=== PATIENT | male | born 1965 | race Caucasian/White ===

== ENCOUNTER → 2017-11-23 | Outpatient (CLI) | payer BC | LOC: M WUC 16:55 | DX: R05 Cough (principal) | CPT/HCPCS: 71046 ==

== ENCOUNTER 2017-12-05 11:32 | Day surgery (SDC) | payer BC ==
[2017-12-05] MEDS ORDERED: NS 1,000 ML IV (12:00)
== END 2017-12-05 12:46 | disposition home or self-care (01) ==
LOC: M OPP 11:32
DX: Z12.11 Encounter for screening for malignant neoplasm of colon (principal); K57.30 Diverticulosis of large intestine without perforation or abscess without bleeding
CPT/HCPCS: G0121

== ENCOUNTER → 2017-12-13 | Outpatient (CLI) | payer BC | LOC: M RAD 10:42 | DX: J32.4 Chronic pansinusitis (principal) ==

== ENCOUNTER 2018-02-20 10:17 | Day surgery (SDC) | payer BC ==
[2018-02-20] MEDS: LR 1,000 ML IV (11:13)
[2018-02-20] MEDS ORDERED: PROPOFOL 200 MG/20 ML VIAL As Ordered (12:30)
[2018-02-20] MEDS ORDERED: ROCURONIUM BROMIDE 50 MG/5 ML VIAL As Ordered (12:30)
[2018-02-20] MEDS ORDERED: KETOROLAC 60 MG/2 ML VIAL (J1885) As Ordered (12:31)
[2018-02-20] MEDS ORDERED: dexameTHASONE 4 MG/ML 1ML VIAL (J1100) As Ordered (12:31)
[2018-02-20] MEDS ORDERED: ONDANSETRON 4MG/2ML VIAL (J2405) As Ordered (12:31)
[2018-02-20] MEDS ORDERED: LIDOCAINE 2% INJ 100 MG/5 ML SDV (FOR ANES.) As Ordered (12:31)
[2018-02-20] MEDS ORDERED: METOCLOPRAMIDE INJ 10MG/2ML VIAL (J2765) As Ordered (12:31)
[2018-02-20] MEDS ORDERED: fentaNYL 100 MCG/2 ML INJECTION (J3010) As Ordered (12:39)
[2018-02-20] MEDS ORDERED: MIDAZOLAM INJ 2 MG/2 ML VIAL (J2250) As Ordered (12:39)
[2018-02-20] MEDS: METHYLENE BLUE 0.5% (5MG/ML) 10 ML AMP (PROVAYBLUE)(Q9968 PER 1MG) As Ordered (13:06)
[2018-02-20] MEDS: EPINEPHrine 1MG/ML INJ 30ML MD-VIAL As Ordered (13:07)
[2018-02-20] MEDS: LIDOCAINE W/EPINEPHRINE 1% 20ML VIAL As Ordered (13:15)
[2018-02-20] MEDS ORDERED: GLYCOPYRROLATE INJ 0.2 MG/ML 2 ML VIAL As Ordered ×2 (13:21)
[2018-02-20] MEDS ORDERED: NEOSTIGMINE 10 MG/10 ML VIAL (J2710) As Ordered (13:21)
[2018-02-20] MEDS ORDERED: HYDROMORPHONE HCL 0.5 MG/ 0.5 ML SYRINGE (J1170 PER 1) IV (14:00)
[2018-02-20] MEDS ORDERED: LR 1,000 ML IV ×2 (14:00)
[2018-02-20] MEDS ORDERED: fentaNYL 100 MCG/2 ML INJECTION (J3010) IV (14:00)
[2018-02-20] MEDS ORDERED: PERCOCET 5MG/325MG TAB PO (14:00)
[2018-02-20] MEDS ORDERED: ONDANSETRON 4MG/2ML VIAL (J2405) IV (14:00)
[2018-02-20] MEDS: ACETAMINOPH W/CODEINE #3 TAB UD PO (15:10)
== END 2018-02-20 15:45 | disposition home or self-care (01) ==
LOC: M SDC 10:17
DX: J34.2 Deviated nasal septum (principal)
CPT/HCPCS: 30520

== ENCOUNTER → 2020-10-17 | Outpatient (REF) | payer BC ==
[~2020-10-17] MED LIST: ACET65TA; FLAG500T; LEVA500T; VICO5TAB
== END ==
LOC: M LAB REF 18:30
PROVIDERS: ATTEND Dermatology
DX: D18.01 Hemangioma of skin and subcutaneous tissue (principal)

== ENCOUNTER → 2021-06-12 | Outpatient (REF) | payer BC | LOC: M LAB REF 17:05 | PROVIDERS: ATTEND Nurse Practitioner Family | DX: D23.5 Other benign neoplasm of skin of trunk (principal) ==